=== PATIENT | female | born 1995 | race Caucasian/White ===

== ENCOUNTER 2016-11-04 19:21 | Emergency (ER) | payer OTHER ==
[~2016-11-04 19:21] MED LIST: ACYCLOVIR400 MG PO; ALLERGY10 M2 PO; AMITRYPTYLINE PO; AMOXICILLIN PO; AMOXICILLIN875 MG PO; AMOXIL400 MG/51 PO; AMOXIL500 M1; BENADRYL12.5 MG PO; BENTYL10 MG PO; BIRTH CONTROL PILL; CLARITIN10 M2; EPIPEN0.3 MG/0.1 IM; MOTRIN400 MG PO; MULTI VITAMIN1 EACH PO; NAPROSYN500 MG PO; NEURONTIN300 MG PO; NO MEDICATIONS; PAXIL PO; PHENERGAN PO; PHENERGAN12.5 MG PO; PREDNISONE PO; ROBAXIN500 MG PO; TRIAMCINOLONE A15 G3 EXT; TYLENOL #3 PO; VOLTAREN75 MG PO; ZANTAC150 MG PO; ZITHROMAX PO; ZOFRAN ODT4 MG PO; ZOFRAN PO; ZOFRANODT SL; [UNRECOGNIZED DRUG - OTHER] PO
[2016-11-04] MEDS ORDERED: [UNRECOGNIZED DRUG - REMARK] (19:27)
== END 2016-11-04 20:55 | disposition home or self-care (01) ==
LOC: SED 19:21
DX: R11.2 Nausea with vomiting, unspecified (principal); F41.8 Other specified anxiety disorders
CPT/HCPCS: 36415; 84703; 96361; 96374; 96375; 99284; J1885; J2405

== ENCOUNTER 2017-02-18 12:29 | Emergency (ER) | payer OTHER ==
[~2017-02-18] VITALS: Ht 157.5 cm; Wt 45.4 kg
[~2017-02-18 12:29] MED LIST changes: +[UNRECOGNIZED DRUG - REMARK]
[2017-02-18] MEDS ORDERED: NITROFURANTOIN100 M3 PO (12:38)
== END 2017-02-18 13:59 | disposition home or self-care (01) ==
LOC: SED 12:29
DX: L72.3 Sebaceous cyst (principal); F32.9 Major depressive disorder, single episode, unspecified; M41.9 Scoliosis, unspecified; Z79.899 Other long term (current) drug therapy
CPT/HCPCS: 99282